=== PATIENT | female | born 1995 | race Caucasian/White ===

== ENCOUNTER 2017-02-17 07:09 | Day surgery (SDC) | payer MEDICARE, MEDICAID ==
[~2017-02-17] VITALS: Ht 142.2 cm; Wt 31.7 kg
[2017-02-17 07:42] VITALS: BP 97/53
[2017-02-17] MEDS ORDERED: LACTATED RINGERS 1,000 ML IV SCH (07:44)
[2017-02-17] MEDS ORDERED: CLON0.1T PO ×2 (07:55)
[2017-02-17] MEDS ORDERED: MELA3TAB62 PO (07:55)
[2017-02-17] MEDS ORDERED: DIVA125T2 PO (07:55)
[2017-02-17] MEDS ORDERED: FENTANYL PF 100 MCG/2ML ONE (08:55)
[2017-02-17] MEDS ORDERED: MIDAZOLAM 1 MG/ML, 5ML ONE (08:55)
[2017-02-17] MEDS ORDERED: FENTANYL PF 100 MCG/2ML IV PRN (10:00)
[2017-02-17] MEDS ORDERED: ACETAMINOPHEN 650 MG/20.3 ML UDC PO PRN (10:00)
[2017-02-17] MEDS ORDERED: ALBUTEROL/IPRATROPIUM 2.5MG/0.5MG, 3 ML NPPB PRN (10:00)
[2017-02-17] MEDS ORDERED: ONDANSETRON 2MG/ML, 2ML IV PRN (10:00)
[2017-02-17] MEDS ORDERED: MEPERIDINE/PF 25MG/0.5ML IV PRN (10:00)
[2017-02-17] MEDS ORDERED: ONDANSETRON 2MG/ML, 2ML ONE (10:38)
[2017-02-17] MEDS ORDERED: GLYCOPYRROLATE 0.2MG/1ML, 5ML ONE (10:38)
[2017-02-17] MEDS ORDERED: DEXAMETHASONE 4 MG/ML, 1ML ONE (10:38)
[2017-02-17] MEDS ORDERED: PROPOFOL 10 MG/ML, 20ML ONE (10:38)
== END 2017-02-17 11:05 | disposition home or self-care (01) ==
LOC: OUT 07:09 → EDSTATUS 09:00 → OUT 11:05
PROVIDERS: ATTEND Psychiatry & Neurology Neurology
DX: G80.9 Cerebral palsy, unspecified (principal); F84.0 Autistic disorder; R56.9 Unspecified convulsions
CPT/HCPCS: 70551; J1100; J2250; J2405; J2704; J3010; J3490